=== PATIENT | female | born 1995 | race Caucasian/White ===

== ENCOUNTER 2024-02-24 22:38 | Emergency (ER) | payer BC, SELFPAY ==
[2024-02-24 22:42] VITALS: BP 151/107
[2024-02-24 23:01] LABS: % Basophils 0.2 % (0-2); % Immature Granulocytes 0.4 % (0-0.5); % Lymphocytes 13.6 % (20.5-51.1); % Neutrophils 80.8 % (42.2-75.2); Absolute Lymphocytes 1.1 10^3/uL (1.2-3.4); Absolute Monocytes 0.4 10^3/uL (0.1-0.6); Absolute Neutrophils 6.7 10^3/uL (1.4-6.5); Hematocrit 38.9 % (37.0-47.0); Hemoglobin 13.6 g/dL (12.0-16.0); Mean Corpuscular Hgb 31.9 pg (27.0-31.0); Mean Corpuscular Volume 91.1 fL (81.0-99.0); Mean Platelet Volume 8.3 fL (7.4-10.4); Nucleated Red Blood Cells % 0 %; Platelet Count 361 10^3/uL (130-400); Red Blood Cell Count 4.27 10^6/uL (4.20-5.40); White Blood Cell Count 8.3 10^3/uL (4.8-10.8)
[2024-02-24 23:03] LABS: Urine Albumin Trace (Neg - Trace); Urine Bilirubin 1+ (Negative); Urine Character Clear (Clear); Urine Color Yellow; Urine Glucose Negative (Negative); Urine Ketone Trace (Negative); Urine Leukocyte Negative (Negative); Urine Nitrite Negative (Negative); Urine Occult Blood Negative (Negative); Urine Urobilinogen Negative (Neg - 1+)
[2024-02-24 23:13] LABS: HCG, Serum Qualitative Screen Negative
[2024-02-24 23:15] LABS: ALT (SGPT) 21 U/L (0-35); AST (SGOT) 21 U/L (14-36); Albumin 4.8 g/dl (3.5-5.0); Alkaline Phosphatase 44 U/L (38-126); Blood Urea Nitrogen 15 mg/dl (7-17); Calcium 9.5 mg/dl (8.4-10.2); Carbon Dioxide 22 mmol/L (22-30); Chloride 104 mmol/L (98-107); Glucose 108 mg/dl (70-99); Lipase 75 U/L (23-300); Potassium 4.3 mmol/L (3.5-5.1); Sodium 134 mmol/L (135-145); Total Bilirubin 0.6 mg/dl (0.2-1.3); eGFR > 60.00
--- NOTE | 2024-02-25 01:34 | ED.GENMED ---
History of Present Illness
<AIDA Corea - Last Filed: 02/25/24 02:36>
General
Chief Complaint: Abdominal Pain
Source: patient
Time Seen by Provider: 02/25/24 01:32
Travel History
Have you had any contact with someone who has COVID-19?: No
Do you have any symptoms of coronavirus? Fever > 100 degrees, chills, cough, shortness of breath, sore throat, loss of taste or smell, muscle aches, or headache?: No
History of Present Illness
History of Present Illness:
Pt is a 28 year old female presenting for abdominal pain and vomiting. She states she woke up yesterday feeling nauseas but did not begin vomiting until 3 pm. She states she at ramen immediately prior to throwing up at 3 pm. Since then she has
thrown up 5 times which she describes as dark brown and with 'blood clots'. She has not thrown up since receiving Zofran in the ambulance. She states the epigastric pain is a 5/10 while she is vomiting but is currently a 2/10. She reports her facial
petechiae is from vomiting. She states the pain comes and goes and denies any radiation of the pain. She states for the past several weeks she has been taking ibuprofen two 200 mg tabs every 4-6 hrs. She reports mild headache. Pt denies history of
H. pylori, sore throat, fever, chills, dysuria, hematuria, diarrhea, constipation, of dizziness. 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
Past History
<AIDA Corea - Last Filed: 02/25/24 02:36>
Past History
ED Past Medical History: None
ED Past Surgical History: Orthopedic (Left knee ACL surgery) and Other (FINGER REMOVAL AN INFANT)
Social History
Tobacco: Non-smoker
Alcohol: None
Drug: None
Personal: Single
Living: with family
Employment: Not employed
Family History
Family History: Other (No significant)
Review of Systems
<AIDA Corea - Last Filed: 02/25/24 02:36>
Review of Systems
Allergies reviewed?: Yes
All Other Systems: Not applicable
Constitutional: Reports no symptoms
EENT: Reports no symptoms
Respiratory: Reports no symptoms
Cardiac: Reports no symptoms
ABD/GI: Reports abdominal pain, nausea and vomiting (brown/black emesis)
: Reports no symptoms
Musculoskeletal: Reports no symptoms
Skin: Reports other (facial flushing and petechiae)
Neurological: Reports no symptoms
Endocrine: Reports no symptoms
Hematologic/Lymphatic: Reports no symptoms
Psychiatric: Reports no symptoms
Phy Exam
<AIDA Corea - Last Filed: 02/25/24 02:36>
General Physical Exam
General Presentation: well appearing and no apparent distress
General age: appears stated age
General Skin: warm, dry and flushed
General Habitus: normal
General Mental: alert
General Hydration: appears well hydrated
ENT Exam
ENT Exam: pharynx normal and swallowing well
Cardiovascular Exam
Cardiovascular Exam: regular rate/rhythm, no edema, no gallop, no murmur and normal peripheral pulses
Pulmonary Exam
Pulmonary Exam: lungs clear, no respiratory distress, no rales, no crackles, no rhonchi, no wheezing and no cough
Gastrointestinal Exam
Gastrointestinal Exam: normal bowel sounds, soft, no organomegaly, non distended and no cva tenderness
Palpation: right upper quadrant: Mild tenderness and Other (epigastric tenderness)
Auscultation of Abdomen: normal
Neurological Exam
Neurological Exam: alert and oriented x3
Musculoskeletal Exam
Musculoskeletal Exam: no edema
Skin Exam
Skin Exam: warm/dry and petechia (facial)
Psychiatric Exam
Psychiatric Exam: normal mood/affect
Course
<Duyen Barillas [facility] - Last Filed: 02/25/24 02:36>
Orders/Labs/Results
Orders:
Orders
02/24/24 22:46
IV Insert/Care/Rem.- Treatment PRN
02/24/24 22:52
Test Result ONCE
02/24/24 22:54
Type+Screen Urgent
Complete Blood Count/With Diff Urgent
Comprehensive Metabolic Panel Urgent
HCG, Serum Qualitative Screen Urgent
Lipase Urgent
Urinalysis Reflex To Culture Urgent
Date Specimen was Collected: 02/24/24
Time Specimen was Collected: 22:46
02/25/24 02:15
Ondansetron Injectable [Zofran] 4 mg .ROUTE .STK-MED ONE
02/25/24 02:19
Ondansetron Injectable [Zofran] 4 mg IV NOW STA
02/25/24 02:51
Pantoprazole [Protonix IV] 80 mg IV NOW STA
Abnormal Lab Results
02/24/24
22:54
MCH 31.9 H pg
(27.0-31.0)
Absolute Neuts (auto) 6.7 H 10^3/uL
(1.4-6.5)
Absolute Lymphs (auto) 1.1 L 10^3/uL
(1.2-3.4)
Neutrophils % 80.8 H %
(42.2-75.2)
Lymphocytes % 13.6 L %
(20.5-51.1)
Sodium 134 L mmol/L
(135-145)
Glucose 108 H mg/dl
(70-99)
Urine Ketones Trace A
(Negative)
Urine Bilirubin 1+ A
(Negative)
02/24/24 22:54
02/24/24 22:54
Vital Signs
Initial and Last Documented VS:
Initial Vital Signs
Temp Pulse Resp BP Pulse Ox
97.9 F 67 19 151/107 95
02/24/24 22:42 02/24/24 22:42 02/24/24 22:42 02/24/24 22:42 02/24/24 22:42
Last Documented Vital Signs
Temp Pulse Resp BP Pulse Ox
97.9 F 67 19 151/107 95
02/24/24 22:42 02/24/24 22:42 02/24/24 22:42 02/24/24 22:42 02/24/24 22:42
Gabbylt;Davey Armijo, - Last Filed: 02/25/24 03:06>
Orders/Labs/Results
Orders:
Orders
02/24/24 22:46
IV Insert/Care/Rem.- Treatment PRN
02/24/24 22:52
Test Result ONCE
02/24/24 22:54
Type+Screen Urgent
Complete Blood Count/With Diff Urgent
Comprehensive Metabolic Panel Urgent
HCG, Serum Qualitative Screen Urgent
Lipase Urgent
Urinalysis Reflex To Culture Urgent
Date Specimen was Collected: 02/24/24
Time Specimen was Collected: 22:46
02/25/24 02:15
Ondansetron Injectable [Zofran] 4 mg .ROUTE .STK-MED ONE
02/25/24 02:19
Ondansetron Injectable [Zofran] 4 mg IV NOW STA
02/25/24 02:51
Pantoprazole [Protonix IV] 80 mg IV NOW STA
Abnormal Lab Results
02/24/24
22:54
MCH 31.9 H pg
(27.0-31.0)
Absolute Neuts (auto) 6.7 H 10^3/uL
(1.4-6.5)
Absolute Lymphs (auto) 1.1 L 10^3/uL
(1.2-3.4)
Neutrophils % 80.8 H %
(42.2-75.2)
Lymphocytes % 13.6 L %
(20.5-51.1)
Sodium 134 L mmol/L
(135-145)
Glucose 108 H mg/dl
(70-99)
Urine Ketones Trace A
(Negative)
Urine Bilirubin 1+ A
(Negative)
02/24/24 22:54
02/24/24 22:54
Vital Signs
Initial and Last Documented VS:
Initial Vital Signs
Temp Pulse Resp BP Pulse Ox
97.9 F 67 19 151/107 95
02/24/24 22:42 02/24/24 22:42 02/24/24 22:42 02/24/24 22:42 02/24/24 22:42
Last Documented Vital Signs
Temp Pulse Resp BP Pulse Ox
97.9 F 67 19 151/107 95
02/24/24 22:42 02/24/24 22:42 02/24/24 22:42 02/24/24 22:42 02/24/24 22:42
<AIDA Corea - Last Filed: 02/25/24 02:36>
MDM/Problems Addressed
Differential Diagnosis Includes:
Duodenal ulcer, peptic ulcer, pill esophagitis, cholecystitis, pancreatitis, gastritis
MDM/Problems Addressed:
Abdominal pain and vomiting
<AIDA Corea - Last Filed: 02/25/24 02:36>
*Critical Care Note
Total Time (30-74mins, 75-104mins- exclusive of procedures): Not Applicable
ED Attending Note
<AIDA Corea - Last Filed: 02/25/24 02:36>
-
Portions of this chart may have been created with voice recognition software.� Occasional wrong word or��sound alike� substitutions may have occurred due to the inherent limitations of voice recognition software.
<Davey Armijo, DO - Last Filed: 02/25/24 03:06>
ED Attending Note
Patient seen and examined by attending physician: Yes
I performed the substantive portion of visit, reviewed & personally made and approve the management plan that is documented in note by myself or KATHARINE.: Yes
ED Attending Note:
28-year-old female presents with abdominal pain and vomiting. She states that she had several episodes of dark brown emesis. Patient reports that she thought she saw blood clots. She currently states her symptoms have resolved completely. She
does report that she has been taking 200 mg of Motrin every 4-6 hours for the last several weeks. She does report some epigastric discomfort. Denies fever, chills, chest pain, shortness of breath. Patient was seen in conjunction with the PA
student. I have reviewed and agree with the history and treatment plan presented. On my independent physical exam, patient is awake, alert, and oriented x3, no acute distress after the second dose of morphine. Heart is regular rate and rhythm.
Lungs are clear to auscultation bilaterally without wheezes rales or rhonchi. Abdomen is soft nontender. Pain is not reproducible. Moves all 4 extremities. Skin is warm and dry.
Differential is GERD, Lurdes-Pittman tear, PUD
Discharge Plan
Departure
Patient Disposition: Home (Routine Discharge)
Date of Disposition: 02/25/24
Time of Disposition: 03:03
Patient with high blood pressure during this ER visit?: No
Covid-19: Not Applicable
Discharge Problem:
Hematemesis, Gastroesophageal reflux disease, NSAID long-term use
Instructions: Gastric Ulcer (DC), Acid Reflux and GERD in Adults (DC), Nausea and Vomiting, Adult (DC), Nonsteroidal antiinflammatory drugs (NSAIDs)
Prescriptions:
New
pantoprazole [Protonix] 40 mg tablet,delayed release (DR/EC)
40 mg PO DAILY Qty: 14 0RF
sucralfate [Carafate] 100 mg/mL suspension
10 ml PO ACHS Qty: 200 0RF
No Action
Control Pill
1 tab PO DAILY
fexofenadine [Silvia] 30 MG tablet
30 mg PO PRN PRN (Reason: allergy)
diphenhydramine HCl [Banophen] 25 MG capsule
2 cap PO PRN PRN (Reason: allergy)
montelukast 10 MG tablet
10 mg PO DAILY
hydromorphone 2 MG tablet
2 - 4 mg PO Q6HPRN PRN (Reason: pain) Qty: 30 0RF
psyllium husk (aspartame) [Metamucil Fiber Singles] 1 PACKET powder in packet
1 packet PO DAILY Qty: 10 0RF
montelukast 10 MG tablet
10 mg PO DAILY Qty: 5 0RF
famotidine 20 MG tablet
20 mg PO BID Qty: 10 0RF
clindamycin HCl 300 MG capsule
300 mg PO Q8 Qty: 21 0RF
hydromorphone 2 MG tablet
2 mg PO Q6HPRN PRN (Reason: severe pain) Qty: 20 0RF
Referrals:
Latisha Patino MD [Family Provider] -
Activity Restrictions/Additional Instructions:
Your prescriptions were sent electronically to the pharmacy that you specified.
It was a pleasure meeting you and taking part in your care. We hope for your continued healing and wellness.
Please read discharge instructions in their entirety. However, they are for general education and may not describe your exact diagnosis at discharge. Information on your ER visit and medical conditions were discussed with you along with appropriate
follow up information...
If indicated, please take your medications as instructed and indicated on discharge paperwork.
Please schedule a follow up appointment as directed. Call to schedule an appointment
Please return to the emergency department with ANY change in, persisting, or worsening of symptoms. If any of your symptoms do not improve, or persist, or become more severe within 6-12 hours, please return to the emergency department for further
care.
Please return to the emergency department if you develop a headache, neck pain/stiffness, fever greater than 100.4F, chest pain, shortness of breath, persistent nausea, vomiting, slurred speech, difficulty walking, numbness/tingling, weakness, signs
of infection or any other symptoms that are worrisome to you.
If you have any questions or concerns please do not hesitate to call the Hospital at or E-mail me directly at [email or web address]
Interventions
Interventions:
*Risk Screen - Suicide Last Done: 02/24/24 22:42
*General Assessment Last Done: 02/24/24 22:42
*Neglect/Abuse Screening Last Done: 02/24/24 22:42
ED- Fall Risk Assessment Last Done: 02/25/24 02:53
*ED COVID-19 Vaccine History Last Done: 02/24/24 22:42
BU-Jlckiy-Voekjmwwyf Assessment Last Done: 02/25/24 02:53
Discharge Date and Time
Print Language: [place]LAND[place]
[2024-02-25] MEDS: ZOFRAN 4 MG IV (02:19)
[2024-02-25] MEDS: PROTONIX IV 80 MG IV (03:00)
[2024-02-25 03:18] VITALS: BP 147/86
== END 2024-02-25 03:19 | disposition home or self-care (01) ==
LOC: EMR 22:38
PROVIDERS: EMERGENCY PHYSICIAN Student in an Organized Health Care Education/Training Program; FAMILY PHYSICIAN Family Medicine
DX: K21.9 Gastro-esophageal reflux disease without esophagitis (principal); K92.0 Hematemesis; R10.13 Epigastric pain; R23.2 Flushing; R51.9 Headache, unspecified; Z79.1 Long term (current) use of non-steroidal anti-inflammatories (NSAID); Z88.6 Allergy status to analgesic agent; Z91.030 Bee allergy status; Z88.5 Allergy status to narcotic agent; Z91.013 Allergy to seafood
CPT/HCPCS: 99284; 96374; 96375; 80053; 81003; 83690; 84703; 85025; 86850; 86900; 86901